=== PATIENT | female | born 1980 | race Caucasian/White ===

== ENCOUNTER → 2017-05-09 | Outpatient (CLI) | payer OTHER ==
[~2017-05-09] MED LIST: AMLODIPINE BESY10 M1 PO; CYMBALTA60 MG PO; DARVOCET-N 1001 EACH PO; FLEXERIL10 MG PO; HYDROCHLOROTH12.5 M2 PO; IBU-8800 MG PO; LORTAB 5/500 501 TAB PO; MEDROL 4MG. DOSE4 MG PO; MELOXICAM15 MG PO; METRONIDAZOLE500 M2 PO; MODAFINIL100 MG PO; NORCO 325 MG-51 TAB PO; OMEPRAZOLE20 MG PO; PHENERGAN12.5 M3 PO; SINGULAIR 10 MG10 MG PO; XYZAL5 MG PO
[2017-05-09 12:07] LABS: LYMPH # 2.9 K/mm3 (0.7-4.5)
[2017-05-09 13:59] LABS: FREE THYROXIN INDEX 5.5 ug/dl (5.93-13.13)
== END ==
LOC: LAB 11:33
PROVIDERS: Nurse Practitioner Obstetrics & Gynecology
DX: Z01.419 Encounter for gynecological examination (general) (routine) without abnormal findings (principal)

== ENCOUNTER → 2017-05-14 | Outpatient (CLI) | payer OTHER ==
--- NOTE | 2017-05-14 15:19 | RADIOLOGY REPORT PS360 ---
US PELVIS-TRANSVAGINAL ONLY HISTORY: Heavy cycles, pelvic pain DUB ORDERING PHYSICIAN: Gatito Rico MD PATIENT AGE: 37 years COMPARISON: None FINDINGS: UTERUS: The uterus measures 6.5 x 2.7 x 4.1 cm. Combined endometrial thickness is 4 mm. There are multiple nabothian cysts noted. No uterine mass apparent.. RIGHT OVARY: 3 x 3.4 cm. Small follicles including a 1.6 x 0.9 cm cyst LEFT OVARY: 3 x 1.8 cm. Multiple small follicles CUL-DE-SAC FLUID: No cul-de-sac fluid apparent OTHER FINDINGS: None IMPRESSION: Small bilateral ovarian follicles and 16 mm right ovarian cyst otherwise negative pelvic ultrasound
--- NOTE | 2017-05-16 08:48 | RADIOLOGY REPORT PS360 ---
DIG MAMM-SCREEN YOGI W/CAD CAD Screening COMPARISON: Digital mammograms 05/09/2016 INDICATION: There is a history of breast cancer in patient's maternal aunt. TECHNIQUE: Standard CC and MLO images were obtained. R2 CAD reviewed. FINDINGS: There is a moderately and diffusely dense and heterogenic parenchymal pattern somewhat lessening the sensitivity of mammography. The findings are bilateral and symmetrical. There is no suspicious lesion and there are no suspicious microcalcifications. IMPRESSION: Moderately dense parenchymal pattern with no suspicious lesion seen recommend yearly follow-up BI-RADS CATEGORY: 1_Negative RECOMMENDED FOLLOWUP: 12M 12 MONTH FOLLOW-UP (A letter has been sent to the patient regarding results of the study.)
== END ==
LOC: RAD 10:30
DX: Z12.31 Encounter for screening mammogram for malignant neoplasm of breast (principal); N92.0 Excessive and frequent menstruation with regular cycle
CPT/HCPCS: G0202